=== PATIENT | male | born 1985 | race Caucasian/White ===

== ENCOUNTER 2017-04-23 08:30 | Emergency (ER) | payer OTHER, BC ==
--- NOTE | 2017-04-23 08:42 | EDM.PDOC ---
ED HPI GENERAL MEDICAL PROBLEM - General Chief Complaint: Laceration Stated Complaint: CUT ON LEFT INDEX FINGER Time Seen by Provider: 04/23/17 08:42 Source of Information: Reports: Patient - History of Present Illness INITIAL COMMENTS - FREE TEXT/NARRATIVE: HISTORY AND PHYSICAL: History of present illness: []Patient cut his right thumb on the dorsum of the distal phalanx tendon function intact perineum post suture entire limb neurovascularly intact wound bled well not actively bleeding on arrival Patient also has a lesion on his right second digit lateral aspect 0.5 cm linear laceration entire limb neurovascularly intact No fever nausea vomiting chills sweats Tetanus status unknown to patient Review of systems: As per history of present illness and below otherwise all systems reviewed and negative. Past medical history: As per history of present illness and as reviewed below otherwise noncontributory. Surgical history: As per history of present illness and as reviewed below otherwise noncontributory. Social history: No reported history of drug or alcohol abuse. Family history: As per history of present illness and as reviewed below otherwise noncontributory. Physical exam: HEENT: Atraumatic, normocephalic, pupils reactive, negative for conjunctival pallor or scleral icterus, mucous membranes moist, throat clear, neck supple, nontender, trachea midline. Lungs: Clear to auscultation, breath sounds equal bilaterally, chest nontender. Heart: S1S2, regular, negative for clicks, rubs, or JVD. Abdomen: Soft, nondistended, nontender. Negative for masses or hepatosplenomegaly. Negative for costovertebral tenderness. Pelvis: Stable nontender. Genitourinary: Deferred. Rectal: Deferred. Extremities: Atraumatic, negative for cords or calf pain. Neurovascular unremarkable. Neuro: Awake, alert, oriented. Cranial nerves II through XII unremarkable. Cerebellum unremarkable. Motor and sensory unremarkable throughout. Exam nonfocal. Skin as per history of present illness otherwise unremarkable Diagnostics: [] Therapeutics: []Tetanus status is updated Lidocaine #3 4-0 Monosof sutures interrupted-right thumb #340 Monosoft sutures interrupted right second digit Standard wound care Bacitracin and bandaging Sutures out 10 days Impression: []2 cm linear laceration dorsum right thumb 2.5 cm linear laceration lateral right second digit Definitive disposition and diagnosis as appropriate pending reevaluation and review of above. left index Pain Score (Numeric/FACES): 3 - Related Data Allergies Allergy/AdvReac Type Severity Reaction Status Date / Time No Known Allergies Allergy Verified 04/23/17 08:36 Home Meds: Home Meds Albuterol [Ventolin HFA] 1 - 2 puff INH ASDIRECTED PRN 07/25/15 [History] Fluticasone Propionate [Flonase Allergy Relief] 1 - 2 sprays NASBOTH DAILY 07/25 [History] Montelukast Sodium [Singulair] 10 mg PO DAILY 07/25/15 [History] Past Medical History HEENT History: Reports: Allergic Rhinitis Other Respiratory History: sports induced asthma Social & Family History - Tobacco Use Smoking Status *Q: Never Smoker Second Hand Smoke Exposure: No - Alcohol Use Days Per Week of Alcohol Use: 1 - Recreational Drug Use Recreational Drug Use: No Drug Use in Last 12 Months: No ED ROS GENERAL - Review of Systems Review Of Systems: ROS reveals no pertinent complaints other than HPI. ED EXAM, SKIN/RASH Exam: See Below Course - Vital Signs Last Recorded V/S: Last Vital Signs Temp 36.1 C 04/23/17 08:37 Pulse 75 04/23/17 08:37 Resp 18 04/23/17 08:37 BP 145/89 H 04/23/17 08:37 Pulse Ox 98 04/23/17 08:37 - Orders/Labs/Meds Orders: Active Orders 24 hr Category Date Time Status Vaccines to be Administered [RC] PER UNIT ROUTINE Care 04/23/17 08:45 Active Meds: Medications Discontinued Medications Generic Name Dose Route Start Last Admin Trade Name Leleq PRN Reason Stop Dose Admin Diphtheria/Tetanus/Acell Pertussis 0.5 ml 04/23/17 08:45 04/23/17 09:21 Adacel IM 04/23/17 08:46 0.5 ml .ONCE ONE Administration Lidocaine HCl 20 ml 04/23/17 08:50 04/23/17 09:21 Xylocaine 1% INJECT 04/23/17 08:51 20 ml ONETIME ONE Administration Departure - Departure Time of Disposition: :26 Disposition: Home, Self-Care 01 Condition: Good Clinical Impression: Laceration - Discharge Information Forms: ED Department Discharge Additional Instructions: Bacitracin Bandaging/tube dressing Keep wounds clean and dry for 48 hours Standard wound care instruction Return if redness warmth or pus drainage or fever nausea vomiting chills sweats should they develop you may leave dressing on, unless bleeds through or becomes soiled change as needed Sutures out in 10 days The following information is given to patients seen in the emergency department who are being discharged to home. This information is to outline your options for follow-up care. We provide all patients seen in our emergency department with a follow-up referral. The need for follow-up, as well as the timing and circumstances, are variable depending upon the specifics of your emergency department visit. If you don't have a primary care physician on staff, we will provide you with a referral. We always advise you to contact your personal physician following an emergency department visit to inform them of the circumstance of the visit and for follow-up with them and/or the need for any referrals to a consulting specialist. The emergency department will also refer you to a specialist when appropriate. This referral assures that you have the opportunity for follow-up care with a specialist. All of these measure are taken in an effort to provide you with optimal care, which includes your follow-up. Under all circumstances we always encourage you to contact your private physician who remains a resource for coordinating your care. When calling for follow-up care, please make the office aware that this follow-up is from your recent emergency room visit. If for any reason you are refused follow-up, please contact the [facility] emergency department at and asked to speak to the emergency department charge nurse. - My Orders Last 24 Hours: My Active Orders 04/23/17 08:45 Vaccines to be Administered [RC] PER UNIT ROUTINE - Assessment/Plan Last 24 Hours: My Active Orders 04/23/17 08:45 Vaccines to be Administered [RC] PER UNIT ROUTINE
[2017-04-23] MEDS ORDERED: Diphtheria,Pertussis(Acell),Tetanus Vaccine 0.5 ML Syringe IM ONE (08:45)
[2017-04-23] MEDS ORDERED: Lidocaine 1% 20 ML MDV INJECT ONE (08:50)
[2017-04-23 10:43] VITALS: BP 133/87
== END 2017-04-23 09:58 | disposition home or self-care (01) ==
LOC: MW.ED 08:30
DX: S61.210A Laceration without foreign body of right index finger without damage to nail, initial encounter (principal); S61.011A Laceration without foreign body of right thumb without damage to nail, initial encounter; Z23 Encounter for immunization; Z79.899 Other long term (current) drug therapy; W31.89XA Contact with other specified machinery, initial encounter
CPT/HCPCS: 12002; 90471; 90715; 99282; 99283-25

== ENCOUNTER 2018-02-26 16:39 | Emergency (ER) | payer OTHER, BC ==
[2018-02-26] MEDS ORDERED: ceFAZolin 1 GM Vial IM ONE (16:58)
--- NOTE | 2018-02-26 16:58 | EDM.PDOC ---
ED HPI GENERAL MEDICAL PROBLEM - General Chief Complaint: Lower Extremity Injury/Pain Stated Complaint: PT HURT RT LEG AT WORK Time Seen by Provider: 02/26/18 16:39 - History of Present Illness INITIAL COMMENTS - FREE TEXT/NARRATIVE: HISTORY AND PHYSICAL: History of present illness: Patient 32-year-old white male presents with a concern of injury to his right thigh this was in the form of splinting that punctured through his pain into his right thigh this occurred earlier today at work he is up-to-date on his tetanus he denies other trauma or concern Review of systems: As per history of present illness and below otherwise all systems reviewed and negative. Past medical history: As per history of present illness and as reviewed below otherwise noncontributory. Surgical history: As per history of present illness and as reviewed below otherwise noncontributory. Social history: No reported history of drug or alcohol abuse. Family history: As per history of present illness and as reviewed below otherwise noncontributory. Physical exam: HEENT: Atraumatic, normocephalic, pupils reactive, negative for conjunctival pallor or scleral icterus, mucous membranes moist, throat clear, neck supple, nontender, trachea midline. Lungs: Clear to auscultation, breath sounds equal bilaterally, chest nontender. Heart: S1S2, regular, negative for clicks, rubs, or JVD. Abdomen: Soft, nondistended, nontender. Negative for masses or hepatosplenomegaly. Negative for costovertebral tenderness. Pelvis: Stable nontender. Genitourinary: Deferred. Rectal: Deferred. Extremities: Right thigh has approximately 1/2 cm puncture type wound was good hemostasisand swelling is tenderness to palpation no evidence of foreign body neurovascular exam is unremarkable Neuro: Awake, alert, oriented. Cranial nerves II through XII unremarkable. Cerebellum unremarkable. Motor and sensory unremarkable throughout. Exam nonfocal. Diagnostics: X-ray right femur Therapeutics: Wound was irrigated and prepped with copious amounts 0.9 normal saline he was dressed with bacitracin and occlusive dressing Impression: #1 right thigh wound Definitive disposition and diagnosis as appropriate pending reevaluation and review of above. - Related Data Allergies Allergy/AdvReac Type Severity Reaction Status Date / Time No Known Allergies Allergy Verified 04/23/17 08:36 Home Meds: Home Meds Albuterol [Ventolin HFA] 1 - 2 puff INH ASDIRECTED PRN 07/25/15 [History] Fluticasone Propionate [Flonase Allergy Relief] 1 - 2 sprays NASBOTH DAILY 07/25 [History] Montelukast Sodium [Singulair] 10 mg PO DAILY 07/25/15 [History] Past Medical History HEENT History: Reports: Allergic Rhinitis Cardiovascular History: Reports: None Respiratory History: Reports: Asthma Other Respiratory History: sports induced asthma Gastrointestinal History: Reports: None Genitourinary History: Reports: None Musculoskeletal History: Reports: None Neurological History: Reports: None Psychiatric History: Reports: None Endocrine/Metabolic History: Reports: None Hematologic History: Reports: None Immunologic History: Reports: None Oncologic (Cancer) History: Reports: None Dermatologic History: Reports: None - Infectious Disease History Infectious Disease History: Reports: None - Past Surgical History Head Surgeries/Procedures: Reports: None Musculoskeletal Surgical History: Reports: Other (See Below) Other Musculoskeletal Surgeries/Procedures:: Knee surgery Social & Family History - Family History Family Medical History: Noncontributory - Tobacco Use Smoking Status *Q: Never Smoker Second Hand Smoke Exposure: No - Caffeine Use Caffeine Use: Reports: Soda - Alcohol Use Days Per Week of Alcohol Use: 1 - Recreational Drug Use Recreational Drug Use: No Drug Use in Last 12 Months: No Review of Systems - Review of Systems Review Of Systems: ROS reveals no pertinent complaints other than HPI. ED EXAM, GENERAL - Physical Exam Exam: See Below (See dictation) Course - Orders/Labs/Meds Orders: Active Orders 24 hr Category Date Time Status Femur Min 2V Rt [CR] Stat Exams 02/26/18 16:55 Ordered Departure - Departure Time of Disposition: 16:57 Disposition: Home, Self-Care 01 Condition: Good Clinical Impression: Penetrating thigh wound - Discharge Information Referrals: PCP,None [Primary Care Provider] - Additional Instructions: The following information is given to patients seen in the emergency department who are being discharged to home. This information is to outline your options for follow-up care. We provide all patients seen in our emergency department with a follow-up referral. The need for follow-up, as well as the timing and circumstances, are variable depending upon the specifics of your emergency department visit. If you don't have a primary care physician on staff, we will provide you with a referral. We always advise you to contact your personal physician following an emergency department visit to inform them of the circumstance of the visit and for follow-up with them and/or the need for any referrals to a consulting specialist. The emergency department will also refer you to a specialist when appropriate. This referral assures that you have the opportunity for followup care with a specialist. All of these measure are taken in an effort to provide you with optimal care, which includes your followup. Under all circumstances we always encourage you to contact your private physician who remains a resource for coordinating your care. When calling for followup care, please make the office aware that this follow-up is from your recent emergency room visit. If for any reason you are refused follow-up, please contact the [facility] emergency department at and asked to speak to the emergency department charge nurse. Zenonflex as prescribed wound care and dressing changes as discussed follow-up occupational medicine or private medical doctor as discussed return as needed as discussed[] - My Orders Last 24 Hours: My Active Orders 02/26/18 16:55 Femur Min 2V Rt [CR] Stat - Assessment/Plan Last 24 Hours: My Active Orders 02/26/18 16:55 Femur Min 2V Rt [CR] Stat
[2018-02-26] MEDS ORDERED: Water For Injection, Sterile 20 ML ONE (17:01)
[2018-02-26] MEDS ORDERED: Bacitracin Oint 1 GM U/D Packet ONE (18:40)
[2018-02-26] MEDS ORDERED: Bacitracin Oint 1 GM U/D Packet TOP ONE (18:42)
[2018-02-26 19:05] VITALS: BP 139/96
--- NOTE | 2018-02-27 09:45 | CR ---
EXAM DATE: 02/26/18 PATIENT'S AGE: 32 Patient: STEFANI KOENIG Facility: [place], [place] Site . Site : 1985 Study: XRay Extremity Right femur [id number]/2/2018 5:25:30 PM Ordering Physician: Carol Escoto Final Report: INDICATION: puncture wound to right distal thigh TECHNIQUE: Right femur radiographs COMPARISON: None FINDINGS: Bones: No fractures or bone lesions. Joint spaces: Unremarkable. Soft tissues: Unremarkable. IMPRESSION: No acute bony abnormality Dictated by Javier Bradley MD @ 02/26/2018 6:03:17 PM Dictated by: Javier Bradley MD @ 02/26/2018 18:04:28 (Electronic Signature) Report Signed by Proxy. [facility] HOSPITALCynthia
== END 2018-02-26 18:48 | disposition home or self-care (01) ==
LOC: MW.ED 16:39
DX: S71.131A Puncture wound without foreign body, right thigh, initial encounter (principal); J45.909 Unspecified asthma, uncomplicated; Z79.899 Other long term (current) drug therapy; W45.8XXA Other foreign body or object entering through skin, initial encounter; Y99.0 Civilian activity done for income or pay
CPT/HCPCS: 73552; 96372; 99283; J0690